=== PATIENT | female | born 1990 | race Caucasian/White ===

== ENCOUNTER 2017-11-14 08:15 | Emergency (ER) | payer OTHER ==
[~2017-11-14] VITALS: Ht 162.6 cm; Wt 101.6 kg
[2017-11-14 08:22] VITALS: BP 122/64; Ht 162.6 cm; Wt 101.6 kg
== END 2017-11-14 09:56 | disposition home or self-care (01) ==
LOC: ED 08:15
DX: M54.41 Lumbago with sciatica, right side (principal); Z90.49 Acquired absence of other specified parts of digestive tract